=== PATIENT | female | born 1985 | race Two or more races ===

== ENCOUNTER 2018-09-13 13:51 | Outpatient (CLI) | payer OTHER ==
[~2018-09-13 13:51] MED LIST: COLACE50 MG/5 ML; FOLIC ACID1 MG
== END 2018-09-13 13:53 | disposition home or self-care (01) ==
LOC: RAD 13:51
DX: R05 Cough (principal)

== ENCOUNTER 2019-04-09 12:46 | Outpatient (CLI) | payer OTHER | END 2019-04-09 12:48 | disposition home or self-care (01) | LOC: RAD 12:46 | DX: M54.5 Low back pain (principal); M25.562 Pain in left knee ==

== ENCOUNTER 2019-11-26 13:14 | Outpatient (CLI) | payer OTHER | END 2019-11-26 14:50 | disposition home or self-care (01) | LOC: OFIC 805 13:14 | PROVIDERS: ATTEND Otolaryngology Otology & Neurotology | DX: H91.8X1 Other specified hearing loss, right ear (principal) ==

== ENCOUNTER 2020-01-28 15:11 | Outpatient (CLI) | payer OTHER | END 2020-01-28 15:38 | disposition home or self-care (01) | LOC: LAB 15:11 → EDSTATUS 01-29 15:10 | PROVIDERS: ATTEND Specialist | DX: Z20.828 Contact with and (suspected) exposure to other viral communicable diseases (principal); Z11.59 Encounter for screening for other viral diseases ==

== ENCOUNTER → 2021-08-19 | Emergency (ER) | payer OTHER | END | disposition home or self-care (01) | LOC: ER 12:57 | DX: S60.477A Other superficial bite of left little finger, initial encounter (principal); W54.0XXA Bitten by dog, initial encounter; Y93.9 Activity, unspecified; Y92.9 Unspecified place or not applicable; Y99.9 Unspecified external cause status; Z91.013 Allergy to seafood ==

== ENCOUNTER 2022-01-18 05:55 | Day surgery (SDC) | payer OTHER ==
[~2022-01-18 05:55] MED LIST changes: +ADDERALL 30 MG30 MG PO; +CATAFLAN; +FLEXERIL; +GABAPENTIN300 M2 PO
== END 2022-01-18 13:55 | disposition home or self-care (01) ==
LOC: CIR.AMB 05:55
PROVIDERS: ATTEND Urology
DX: N39.3 Stress incontinence (female) (male) (principal); Z88.0 Allergy status to penicillin; Z91.013 Allergy to seafood; Z86.16 Personal history of COVID-19; Z20.822 Contact with and (suspected) exposure to COVID-19
CPT/HCPCS: 57288; C1771

== ENCOUNTER 2022-06-14 14:10 | Outpatient (CLI) | payer OTHER | END 2022-06-14 14:13 | disposition home or self-care (01) | LOC: RAD 14:10 | PROVIDERS: ATTEND Physical Medicine & Rehabilitation | DX: M54.2 Cervicalgia (principal); M54.59 Other low back pain ==

== ENCOUNTER 2022-07-12 14:19 | Outpatient (CLI) | payer OTHER | END 2022-07-12 14:29 | disposition home or self-care (01) | LOC: RAD 14:19 | DX: M99.02 Segmental and somatic dysfunction of thoracic region (principal) ==

== ENCOUNTER 2022-07-15 15:35 | Emergency (ER) | payer OTHER ==
[~2022-07-15] VITALS: Ht 157.5 cm; Wt 72.6 kg
== END 2022-07-15 17:53 | disposition home or self-care (01) ==
LOC: ER 15:35
DX: N76.4 Abscess of vulva (principal); Z88.0 Allergy status to penicillin; Z91.013 Allergy to seafood

== ENCOUNTER 2023-11-20 11:12 | Outpatient (CLI) | payer OTHER | END 2023-11-20 11:13 | disposition home or self-care (01) | LOC: NUCLEAR 11:12 | PROVIDERS: ATTEND Internal Medicine Cardiovascular Disease | DX: I10 Essential (primary) hypertension (principal) ==

== ENCOUNTER 2024-05-20 07:56 | Outpatient (CLI) | payer OTHER | END 2024-05-20 08:00 | disposition home or self-care (01) | LOC: MAMO-SONO 07:56 | PROVIDERS: ATTEND Specialist | DX: N60.11 Diffuse cystic mastopathy of right breast (principal); N60.12 Diffuse cystic mastopathy of left breast; Z12.31 Encounter for screening mammogram for malignant neoplasm of breast ==

== ENCOUNTER 2024-10-07 07:29 | Outpatient (CLI) | payer OTHER | END 2024-10-07 07:36 | disposition home or self-care (01) | LOC: SONOGRAMA 07:29 | PROVIDERS: ATTEND Specialist | DX: R10.9 Unspecified abdominal pain (principal) ==